=== PATIENT | female | born 1980 | race Two or more races ===

== ENCOUNTER 2024-07-09 18:18 | Emergency (ER) | payer OTHER ==
[~2024-07-09] VITALS: Ht 162.6 cm; Wt 80.7 kg
[2024-07-09 18:28] VITALS: TEMP 98.7
[2024-07-09] MEDS ORDERED: predniSONE 20 MG TABLET ONE (18:38)
[2024-07-09] MEDS: predniSONE 20 MG TABLET PO ONE (18:40)
[2024-07-09] MEDS: ALBUTEROL FS 2.5 MG/3 ML VIAL.NEB NEB ONE (18:42)
[2024-07-09] MEDS: IPRATROPIUM NEB FS 0.5 MG/2.5 ML AMPUL.NEB NEB ONE (18:42)
[2024-07-09 18:46] LABS: BASOPHILS # (AUTO) 0.1 K/uL (0.0-0.2); BASOPHILS % (AUTO) 0.4 % (0.0-2.0); EOSINOPHILS # (AUTO) 0.2 K/uL (0.0-0.7); EOSINOPHILS % (AUTO) 1.2 % (0.0-6.0); HEMATOCRIT 32 % (33-45); HEMOGLOBIN 10.2 g/dL (11.5-14.8); LYMPHOCYTES # (AUTO) 0.6 K/uL (0.8-4.8); LYMPHOCYTES % (AUTO) 4.8 % (20.0-44.0); MEAN CORPUSCULAR HEMOGLOBIN 23 PG (26.0-33.0); MEAN CORPUSCULAR HGB CONC 32 g/dl (31.0-36.0); MEAN CORPUSCULAR VOLUME 74 fL (82-100); MONOCYTES # (AUTO) 0.8 K/uL (0.1-1.30); MONOCYTES % (AUTO) 5.9 % (2.0-12.0); NEUTROPHILS # (AUTO) 11.7 K/uL (1.8-8.9); NEUTROPHILS % (AUTO) 87.7 % (43.0-81.0); PLATELET COUNT (AUTO) 424 K/uL (150-450); RED BLOOD CELL COUNT(AUTO) 4.34 MIL/uL (4.0-5.2); RED CELL DISTRIBUTION WIDTH 17.6 % (11.5-15.0); WHITE BLOOD COUNT (AUTO) 13.4 K/uL (4.3-11.0)
[2024-07-09] MEDS ORDERED: IPRATROPIUM NEB FS 0.5 MG/2.5 ML AMPUL.NEB ONE (18:48)
[2024-07-09] MEDS ORDERED: ALBUTEROL FS 2.5 MG/3 ML VIAL.NEB ONE (18:48)
[2024-07-09 18:52] VITALS: O2SAT 100
[2024-07-09 18:53] LABS: CALCIUM, SERUM 8.4 mg/dL (8.5-10.1); POTASSIUM 3.8 mmol/L (3.5-5.1)
[2024-07-09 19:07] VITALS: O2SAT 98
[2024-07-09 19:14] LABS: EOSINOPHILS % (MANUAL) 1 % (0-4); LYMPHOCYTES % (MANUAL) 9 % (16-48); MONOCYTES % (MANUAL) 4 % (0-11.0); NEUTROPHILS % (MANUAL) 86 (42-76)
[2024-07-09 19:15] LABS: ANISOCYTOSIS 1+; PLATELET ESTIMATE ADEQUATE
[2024-07-09 19:28] LABS: ABG BASE EXCESS -6.9 mmol/L (-2.0-3.0); ABG OXYGEN SATURATION 97.6 % (94.0-98.0); ABG PCO2 24.3 mmHg (32.0-45.0); ABG PH 7.433 (7.350-7.450); ABG PO2 94.6 mmHg (83.0-108.0); ABG TOTAL HEMOGLOBIN 11.1 G/dL (12.0-16.0); COHb 0.3 % (0.5-1.5); MetHb 0.3 % (0.0-1.5); SITE, ABG LEFT RADIAL
[2024-07-09] MEDS ORDERED: PRED50TA PO (19:31)
[2024-07-09 19:49] VITALS: BP 119/77; O2SAT 98
== END 2024-07-09 19:51 | disposition home or self-care (01) ==
LOC: ER 18:24
DX: J45.901 Unspecified asthma with (acute) exacerbation (principal); Z79.52 Long term (current) use of systemic steroids; Z88.1 Allergy status to other antibiotic agents; Z20.822 Contact with and (suspected) exposure to COVID-19
CPT/HCPCS: 99285; 71045; 87426; 93005; 82803; 87804 ×2; 85025; 80048; 36415; 36600; 94640; 85007; J7512

== ENCOUNTER 2024-11-07 18:06 | Emergency (ER) | payer OTHER ==
[~2024-11-07] VITALS: Ht 162.6 cm; Wt 87.5 kg
[~2024-11-07 18:06] MED LIST: PRED50TA PO
[2024-11-07] MEDS ORDERED: ACETAMINOPHEN 325 MG TABLET ONE (19:03)
[2024-11-07] MEDS ORDERED: IBUPROFEN 600 MG TABLET ONE (19:04)
[2024-11-07] MEDS: IBUPROFEN 600 MG TABLET PO ONE (19:05)
[2024-11-07] MEDS: ACETAMINOPHEN 325 MG TABLET PO ONE (19:06)
[2024-11-07 20:24] VITALS: BP 129/80; TEMP 98; O2SAT 97
== END 2024-11-07 20:24 | disposition home or self-care (01) ==
LOC: ER 19:00
DX: S93.401A Sprain of unspecified ligament of right ankle, initial encounter (principal); J45.909 Unspecified asthma, uncomplicated; D86.9 Sarcoidosis, unspecified; Z79.52 Long term (current) use of systemic steroids; Z88.1 Allergy status to other antibiotic agents; W18.30XA Fall on same level, unspecified, initial encounter; Y93.89 Activity, other specified; Y92.89 Other specified places as the place of occurrence of the external cause; Y99.8 Other external cause status
CPT/HCPCS: 73564-TC; 73590-TC; 73610-TC; 73630-TC